=== PATIENT | female | born 1965 | race Native Hawaiian/Other Pacific Islander ===

== ENCOUNTER 2020-04-11 12:01 | Emergency (ER) | payer OTHER ==
[2020-04-11 12:17] VITALS: BP 141/78
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
== END 2020-04-11 20:00 | disposition home or self-care (01) ==
LOC: ED 12:01
DX: K02.9 Dental caries, unspecified (principal); Z76.0 Encounter for issue of repeat prescription; E11.9 Type 2 diabetes mellitus without complications; M19.91 Primary osteoarthritis, unspecified site; Z79.1 Long term (current) use of non-steroidal anti-inflammatories (NSAID); Z79.2 Long term (current) use of antibiotics; Z79.899 Other long term (current) drug therapy
CPT/HCPCS: 99282

== ENCOUNTER 2021-02-07 12:06 | Emergency (ER) | payer OTHER ==
[2021-02-07 12:14] VITALS: BP 143/83
--- NOTE | 2021-02-07 12:33 | Emergency Department Report ---
ED Upper Extremity Inj HPI - General Chief Complaint: Extremity Injury, Upper Stated Complaint: ARM PAIN/WORK RELATED Jan Time Seen by Provider: 02/07/21 12:20 Source: patient Mode of arrival: Ambulatory Limitations: No Limitations - History of Present Illness Initial Comments: Patient is a 55-year-old female who presents emergency room with complaints of a upper extremity injury that occurred on 01/12/2021. Patient states that she was pushing a large bag of beans which she reports was heavy. She states that then she began feeling pain in her upper extremities but she states that her right upper arm is really what is bothering her. She states that she followed up with her primary care doctor who wrote her for ibuprofen and an ointment to use on the arm. He states that she then followed up with occupational therapy at her job and states that she had x-rays performed of the bilateral upper extremities which she says was normal. She states that she had a couple of days off to rest and she states that improved her arms. She states that she went back to work and began having pain again whenever she was moving. She denies any acute fall or injury. She denies any numbness or weakness and is still able to move the arms. She denies any medication allergies. Past medical history of diabetes, arthritis, hypercholesterolemia. - Related Data Previous Rx's Medication Instructions Recorded Last Taken Type Amoxicillin [Trimox CAP] 500 mg PO Q8H 7 Days #21 capsule 04/11/20 Unknown Rx Empagliflozin [Jardiance] 25 mg PO DAILY #14 tablet 04/11/20 Unknown Rx Ibuprofen [Motrin 600 MG tab] 600 mg PO Q8H PRN #21 tablet 04/11/20 Unknown Rx Losartan [Cozaar] 100 mg PO QDAY #14 tablet 04/11/20 Unknown Rx Allergies Allergy/AdvReac Type Severity Reaction Status Date / Time No Known Allergies Allergy Unverified 04/11/20 12:12 ED Review of Systems ROS: Stated complaint: ARM PAIN/WORK RELATED Jan Other details as noted in HPI Comment: All other systems reviewed and negative ED Past Medical Hx - Past Medical History Previous Medical History?: Yes Hx Diabetes: Yes Hx Arthritis: Yes Additional medical history: High cholesterol, degenerative arthritis - Social History Smoking Status: Never Smoker Substance Use Type: None - Medications Home Medications: Home Medications Medication Instructions Recorded Confirmed Last Taken Type Amoxicillin [Trimox CAP] 500 mg PO Q8H 7 Days #21 capsule 04/11/20 Unknown Rx Empagliflozin [Jardiance] 25 mg PO DAILY #14 tablet 04/11/20 Unknown Rx Ibuprofen [Motrin 600 MG tab] 600 mg PO Q8H PRN #21 tablet 04/11/20 Unknown Rx Losartan [Cozaar] 100 mg PO QDAY #14 tablet 04/11/20 Unknown Rx ED Physical Exam - General Limitations: No Limitations General appearance: alert, in no apparent distress - Head Head exam: Present: atraumatic, normocephalic - Eye Eye exam: Present: normal appearance - ENT ENT exam: Present: mucous membranes moist - Respiratory Respiratory exam: Absent: respiratory distress, accessory muscle use - Extremities Exam Extremities exam: Present: other (mild ttp of the right biceps, no bony ttp of the BUE, FROM of the BUE, no deformities, no edema, no ecchymosis, neurovascularly intact) - Neurological Exam Neurological exam: Present: alert, oriented X3 - Psychiatric Psychiatric exam: Present: normal affect, normal mood - Skin Skin exam: Present: warm, dry, intact ED Course Vital Signs 02/07/21 12:12 Temperature 99 F Pulse Rate 90 Respiratory 18 Rate Blood Pressure 143/83 [Left] O2 Sat by Pulse 100 Oximetry ED Medical Decision Making - Medical Decision Making Patient is a 55-year-old female who presents emergency room with complaints of a upper extremity injury that occurred on 01/12/2021. Patient states that she was pushing a large bag of beans which she reports was heavy. She states that then she began feeling pain in her upper extremities but she states that her right upper arm is really what is bothering her. She states that she followed up with her primary care doctor who wrote her for ibuprofen and an ointment to use on the arm. He states that she then followed up with occupational therapy at her job and states that she had x-rays performed of the bilateral upper extremities which she says was normal. She states that she had a couple of days off to rest and she states that improved her arms. She states that she went back to work and began having pain again whenever she was moving. She denies any acute fall or injury. She denies any numbness or weakness and is still able to move the arms. She denies any medication allergies. Past medical history of diabetes, arthritis, hypercholesterolemia. Vitals are stable. On exam: mild ttp of the right biceps, no bony ttp of the BUE, FROM of the BUE, no deformities, no edema, no ecchymosis, neurovascularly intact. Examination appears likely insistent with biceps tendinitis versus muscle strain. Patient has had no acute trauma since her incident on January 12. She has already had x-rays performed which were within normal limits per patient. Patient will be referred to outpatient orthopedics. Advised patient May alternate Tylenol or ibuprofen as needed for discomfort. May use ice 15 minutes at a time, rest, elevation of the arm. Follow-up with the orthopedic doctor. Follow-up with your primary care doctor. Return to emergency room for any new or worsening symptoms. Critical care attestation.: If time is entered above; I have spent that time in minutes in the direct care of this critically ill patient, excluding procedure time. ED Disposition Clinical Impression: Arm pain Qualifiers: Laterality: bilateral Qualified Code(s): M79.601 - Pain in right arm Disposition: HOME / SELF CARE / HOMELESS Is pt being admited?: No Does the pt Need Aspirin: No Condition: Stable Instructions: Muscle Strain, [id number] Additional Instructions: May alternate Tylenol or ibuprofen as needed for discomfort. May use ice 15 minutes at a time, rest, elevation of the arm. Follow-up with the orthopedic doctor. Follow-up with your primary care doctor. Return to emergency room for any new or worsening symptoms. Referrals: ALBERTO RICO MD [Staff Physician] - 3-5 Days [facility] [Provider Group] - 3-5 Days your, primary care doctor [Other] - 3-5 Days Forms: Work/School Release Form(ED) Time of Disposition: 12:31 Print Language: DANISH
== END 2021-02-07 13:01 | disposition home or self-care (01) ==
LOC: ED 12:06
DX: M79.602 Pain in left arm (principal); M79.601 Pain in right arm; E11.8 Type 2 diabetes mellitus with unspecified complications; Z87.39 Personal history of other diseases of the musculoskeletal system and connective tissue
CPT/HCPCS: 99281